=== PATIENT | male | born 1960 | race Caucasian/White ===

== ENCOUNTER 2023-09-06 20:49 | Observation (INO) | payer MEDICARE, SELFPAY ==
--- NOTE | ~2023-09-06 | CT_ITS ---
EXAMINATION: CT chest abdomen pelvis wo con DATE: 09/06/2023 22:32 INDICATION: diffuse swelling BLE/BUE, lactic acidosis . TECHNIQUE: Computed tomography (CT) of the chest, abdomen, and pelvis was performed with 100 mL Omnip aque-350 intravenous contrast. Automated exposure control and iterative reconstruction technique were employed. The dose-length product was 1631.99 mGy-cm. COMPARISON: 10/21/2014; 03/19/2013 FINDINGS: CHEST: Thoracic aorta: Mild ascending aortic ectasia, measuring 4.2 cm, stable. No dissection. Moderate arch calcification. Lung parenchyma and airways: Minimal lingular and right middle lobe scar. Patent airways. Calcified r ight lower lobe granuloma. Thoracic inlet, axillae and chest wall: Mild symmetric bilateral gynecomastia. No thyroid mass. No ax illary lymphadenopathy. Mediastinum: No mass or lymphadenopathy. Calcified right hilar lymph nodes. Heart and pericardium: Normal heart size. No pericardial effusion. Coronary artery calcifications: Mild. Pleura: No effusion or mass. Thoracic bones: No acute osseous finding in the chest. ABDOMEN/PELVIS: Liver: Normal. Biliary/Gallbladder: Gallbladder is distended. No stones or inflammatory change. No bile duct dilatio n. Pancreas: No mass or duct dilation. Spleen: Normal. Adrenals:No mass. Kidneys: No suspicious mass, obstructing stone, or hydronephrosis. Moderate bilateral perinephric str anding. Hyperdense renal pyramids bilaterally which may represent medullary nephrocalcinosis. GI tract: No small or large bowel dilation. Normal appendix. Mesentery/Peritoneum: No ascites, mass, or free air. Retroperitoneum: No mass Atherosclerotic abdominal aortic and/or arterial calcifications. Pelvis: Pelvic organs are within normal limits Soft Tissues: Small supraumbilical fat-containing hernia with mild superficial subcutaneous fat stran ding. Abdominopelvic bones: No acute osseous finding in the abdomen/pelvis. Uncomplicated lumbar fusion mejia rdware. Chronic appearing mild wedge deformity at L1. IMPRESSION: Gallbladder hydrops. May be secondary to fasting or obstruction. Correlate with biliary labs. Mild inflammation of the anterior saphenous fat at the umbilicus, likely related to the adjacent fat- containing ventral hernia. Otherwise no acute process detected in the chest, abdomen, or pelvis. Reviewed, dictated and finalized at location K. IMPRESSION: Gallbladder hydrops. May be secondary to fasting or obstruction. Correlate with biliary labs. Mild inflammation of the anterior saphenous fat at the umbilicus, likely relate d to the adjacent fat-containing ventral hernia. Otherwise no acute process detected in the chest, abdomen, or pelvis.
--- NOTE | ~2023-09-06 | US_ITS ---
EXAMINATION: US venous doppler [facility] DATE: 09/06/2023 22:26 INDICATION: swelling, R> L, pain RLE . TECHNIQUE: Grayscale images without and with compression and Doppler images of the bilateral lower ex tremity veins were obtained. COMPARISON: None FINDINGS: The right common femoral vein, profunda (deep) femoral vein, femoral vein, popliteal vein, peroneal v ein, posterior tibial veins, and greater saphenous vein are patent. The left common femoral vein, profunda (deep) femoral vein, femoral vein, popliteal vein, peroneal v ein, posterior tibial veins, and greater saphenous vein are patent. IMPRESSION: Patent bilateral lower extremity veins. No evidence of deep venous thrombosis. Reviewed, dictated and finalized at location K.
[2023-09-06 21:02] VITALS: BP 89/58; PULSE 59; RESP 16; TEMP 35.9; O2SAT 97
--- NOTE | 2023-09-06 21:15 | ECG_ITS ---
Test Date: 2023-09-06 21:47:37 Measurements Intervals [place] Rate: 55 P: 4 CO: 157 QRS: 13 QRSD: 174 T: 200 QT: 558 QTc: 538 Interpretive Statements SINUS BRADYCARDIA LEFT BUNDLE BRANCH BLOCK BASELINE ARTIFACT- I, III, AVL, AVF, V1 ABNORMAL ECG No previous ECG available for comparison Electronically Signed On 09-07-2023 06:27:04 CDT by Benjamin Porter D.O.
[2023-09-06 21:25] LABS: Basophils Percent Auto 0.5 % (0.2-1.2); Eosinophils Absolute Auto 0.2 K/mm3 (0-0.3); Eosinophils Percent Auto 1.8 % (0-4.4); Hemoglobin 12.9 g/dL (14.0-18.0); Immature Granulocyte Absolute 0.03 K/mm3 (0.00-0.031); Immature Granulocyte Percent A 0.3 % (0-0.5); Lymphocytes Absolute Auto 2.74 K/mm3 (0.9-3.2); Lymphocytes Percent Auto 31.6 % (18.3-44.2); Mean Corpuscular HGB Conc 33.9 g/dl (32-36); Mean Corpuscular Hemoglobin 39.9 pg (26-34); Mean Corpuscular Volume 117.6 fl (80-100); Mean Platelet Volume 9.5 fl (7.4-10.4); Monocytes Absolute Auto 0.8 K/mm3 (0.1-0.6); Monocytes Percent Auto 9.4 % (2.6-8.5); Neutrophils Absolute Auto 4.9 K/mm3 (1.3-6.7); Neutrophils Percent Auto 56.4 % (45.5-73.1); Nucleated Red Blood Cells Perc 0.5 % (0.0-0.2); Platelet Count Result 129 k/mm3 (150-375); Red Blood Count 3.23 M/mm3 (4.6-6.20); Red Cell Distribution Width 15.1 % (11.5-14.5); White Blood Count 8.7 K/mm3 (4.5-10.0)
[2023-09-06 21:33] LABS: Hypochromasia 1+; Ovalocytes 1+; Platelet Estimate Adequate (Adequate); Schistocytes None Seen
[2023-09-06 21:34] LABS: Prothrombin Time 13.9 Seconds (11.1-14.7)
[2023-09-06 21:35] LABS: Partial Thromboplastin Time 26.5 Seconds (22.3-36.8)
[2023-09-06 21:37] LABS: Alanine Aminotransferase 26 U/L (6-50); Albumin Level 3.1 g/dL (3.5-5.1); Alkaline Phosphatase 96 U/L (38-126); Anion Gap 14 mmol/L (4-12); Aspartate Amino Transferase 64 U/L (17-59); Bilirubin,Total 1.1 mg/dL (0.2-1.3); Blood Urea Nitrogen 5 mg/dL (9-20); Calcium 8.4 mg/dL (8.4-10.2); Carbon Dioxide 23 mmol/L (22-30); Chloride 97 mmol/L (98-107); Estimated CRCL calculation 128 ml/min; Estimated Glomerular Filt Rate > 60; Glucose 107 mg/dL (65-110); Lactic Acid Reflex 6.8 mmol/L (0.7-2.0); Potassium 3.5 mmol/L (3.4-5.0); Sodium 134 mmol/L (137-145)
[2023-09-06 21:49] LABS: NT Pro B Type Natriuretic Pept 1310 pg/mL (19.9-100); Troponin I 0.013 ng/mL (0.000-0.034)
--- NOTE | 2023-09-06 21:51 | ED.LOWEXIN ---
HPI - Extremity Injury (Lower) General Chief Complaint: Extremity Injury, Lower Stated Complaint: right leg Time Seen by Provider: 09/06/23 21:30 Source: patient Mode of arrival: ambulatory Limitations: no limitations History of Present Illness HPI Narrative: Patient is a 63-year-old male who presents the ED with report swelling to his lower extremities. Patient reports he has had intermittent swelling in his lower extremities over the past 1 week. States it is worse throughout his right lower extremity and he has had increased pain over the last several days in his RLE, from his knee down. He is prescribed Moseley at home and has been using this with some relief. He also reports having swelling in his upper extremities. Denies significant pain in his upper extremities. Patient reports history of cardiomyopathy. He is on hydrochlorothiazide. He is not on any other diuretics. He reports having dyspnea on exertion, states this is not abnormal for him. He does report having intermittent chest pain over the last several days, last occurring this morning. Denies current pain. Patient is a daily drinker. Drinks 1-2 beers and several shots of whiskey (Fireball) per day. Reports hx of Hep C in the past related to tattoos, has been treated for this. Denies hx of IVDA. Denies known hx of cirrhosis. Denies abd pain, N/V, fevers. Related Data Home Medications Medication Instructions Recorded Confirmed albuterol sulfate 90 mcg/actuation inhalation 09/07/23 aerosol inhaler fluticasone propionate 50 intranasal 09/07/23 mcg/actuation nasal spray,suspension gabapentin 300 mg capsule mg 09/07/23 hydrochlorothiazide 12.5 mg tablet mg 09/07/23 hydrocodone 10 mg-acetaminophen tablet 09/07/23 325 mg tablet lisinopril 10 mg tablet mg 09/07/23 metoprolol tartrate 50 mg tablet mg 09/07/23 prednisone 50 mg tablet mg 09/07/23 Allergies Allergy/AdvReac Type Severity Reaction Status Date / Time iohexol Allergy Itching Verified 09/06/23 21:17 [From contrast - CT, X-RAY] Review of Systems Review of Systems: CONSTITUTIONAL: Denies fever, chills, or sweats. ENT: Denies rhinorrhea, congestion, sore throat. CARDIOVASCULAR: See HPI. RESPIRATORY: See HPI. GASTROINTESTINAL: Denies abdominal pain, nausea, vomiting. MUSCULOSKELETAL: See HPI. All systems reviewed & are unremarkable except as noted in HPI and below Exam Narrative: GENERAL: Appears older than stated age, mildly disheveled, obese with BMI of 34.5, non-toxic, in no acute distress. HEAD: Normocephalic, atraumatic. RESPIRATORY: Airway patent, respirations nonlabored. Decreased lung sounds bilaterally, no significant focal lung sounds. CARDIOVASCULAR: Bradycardic with regular rhythm without murmurs, rubs, or gallops. Peripheral pulses are palpable. ABDOMINAL: Abdomen is mildly distended, but soft, no focal tenderness. Umbilical hernia present. Normoactive BS. MUSCULOSKELETAL: Moves all extremities. Diffuse pitting edema in lower extremities past knees, R increasingly swollen compared to L. Sensation intact. Good temperature and color of both extremities. Diffuse pitting edema of upper extremities, appears symmetric. SKIN: Warm, dry, normal color. Scattered scabs and bruising to upper extremities, nontender. No surrounding signs of infection. NEURO: A&O X3. Speech clear. Cranial nerves II-XII grossly intact. Steady gait. No ataxic movements. PSYCHIATRIC: Appropriate mood and affect. Normal interaction. Course Vital Signs Vital signs: Vital Signs Temperature 96.7 F L 09/06/23 21:02 Pulse Rate 59 L 09/06/23 21:02 Respiratory Rate 16 09/06/23 21:02 Blood Pressure 89/58 L 09/06/23 21:02 Pulse Oximetry 97 09/06/23 21:02 Oxygen Delivery Room Air 09/06/23 21:02 Temperature 96.7 F L 09/06/23 21:02 Pulse Rate 62 09/06/23 23:04 Respiratory Rate 15 09/06/23 23:04 Blood Pressure 98/54 L 09/06/23 23:04 Pulse Oximetry 97
[2023-09-06 22:19] LABS: Lactic Acid Reflex 5.4 mmol/L (0.7-2.0)
[2023-09-06] MEDS: ALBUMIN HUMAN 25% 25 GM/100 ML 100 ML IVPB (23:00)
[2023-09-06] MEDS: ACETAMINOPHEN 500 MG TABLET 1000 MG PO (23:03)
[2023-09-06 23:04] VITALS: BP 98/54; PULSE 62; RESP 15; O2SAT 97
[2023-09-06 23:51] LABS: Ethanol 236 mg/dL (<10)
[2023-09-06 23:54] LABS: Lipase 87 U/L (23-300)
[2023-09-07 00:23] LABS: Reflex Lactic Acid Yes or No Add Lactic
[2023-09-07] MEDS: oxyCODONE HCL (*CRX) 2.5 MG TAB IR 5 MG PO (00:31)
[2023-09-07 00:44] LABS: Troponin I < 0.012 ng/mL (0.000-0.034)
[2023-09-07 00:51] LABS: Appearance Urine Clear (Clear); Bilirubin Urine Negative (Negative); Blood Urine Negative (Negative); Color Urine Yellow (Yellow); Glucose Urine UA Negative (Negative); Ketones Urine Negative (Negative); Leukocyte Esterase Ur Negative LEU/UL (Negative); Nitrate Urine Negative (Negative); Protein Urine Negative (Negative); Specific Grav Ur 1.009 (1.001-1.035)
[2023-09-07 00:57] LABS: Add Urine Microscopic? NO
[2023-09-07 01:06] LABS: Lactic Acid 3.2 mmol/L (0.7-2.0)
[2023-09-07 02:30] VITALS: BP 100/52; BP 104/56; PULSE 61; PULSE 62; RESP 15; RESP 16; O2SAT 100; O2SAT 98
[2023-09-07 02:45] VITALS: BMI 34.8
--- NOTE | 2023-09-07 03:11 | ADMGEN ---
This patient, Prem Raza Jr., was admitted to IMU Room 213-01 at 0235. Patient/family oriented to hospital policies and general routines including ID bracelet, bed and alarms, visiting hours, pain management, procedures, bathroom and other care routines, personal items, smoking policy, room service/diet, and visiting hours. Information on how to activate the Rapid Response Team has been discussed. Patient/Family are encouraged to report perceived risks to care and to ask questions if they do not understand what they are told or what they should do.
[2023-09-07 03:39] LABS: Troponin I < 0.012 ng/mL (0.000-0.034)
[2023-09-07 04:00] VITALS: BP 100/52; PULSE 67; O2SAT 100
--- NOTE | 2023-09-07 04:23 | ECG_ITS ---
Test Date: 2023-09-07 04:42:32 Measurements Intervals [place] Rate: 62 P: 39 GA: 204 QRS: 7 QRSD: 170 T: 181 QT: 521 QTc: 533 Interpretive Statements SINUS RHYTHM BORDERLINE AV CONDUCTION DELAY LEFT BUNDLE BRANCH BLOCK BASELINE ARTIFACT- I, II, III, AVR, V1-V2 ABNORMAL ECG Compared to ECG 09/06/2023 21:47:37 Sinus bradycardia no longer present Electronically Signed On 09-07-2023 06:41:14 CDT by Benjamin Porter D.O.
[2023-09-07] MEDS: NICOTINE (*PBKC) 14 MG PATCH 1 PATCH TRANSDERM (04:28)
[2023-09-07] MEDS: chlordiazePOXIDE (*CRX) 25 MG CAPSULE PO (04:28)
[2023-09-07 05:00] VITALS: BP 133/52; PULSE 64; RESP 22; TEMP 36.4; O2SAT 96
[2023-09-07 06:00] VITALS: PULSE 69
--- NOTE | 2023-09-07 08:01 | PC.NURSE ---
Patient requested to change diet from Heart Healthy to regular diet. Nurse and MD educated patient on benefits and risk of not following diet. Patient stated he wanted to leave if diet not changed. MD stated that it was fine. Nurse educated patient about leaving AMA. Patient verbalized understanding and signed proper documents.
--- NOTE | 2023-09-07 10:14 | PM.SD2 ---
Same Day Admit/Disch: HPI History of Present Illness Chief complaint: BLE/BUE swelling, Lactic acidosis, Alcoholism Narrative: Prem Raza Jr. is a 63 year old male with past medical history cardiomyopathy (reported by the patient), alcohol use disorder, history of hepatitis-C (related stat to) treated. He presents to [facility] with complaint of increasing generalized swelling over the past week. In [facility] he was found to have elevated lactic acid at 5.4. Albumin 3.1. Physical exam revealed anasarca. Lower extremity edema right greater than left. Venous ultrasound was completed which did not demonstrate DVT. The patient was admitted to room 213. Status post albumin infusion is lactic acid removed. The patient was placed on a heart healthy diet for suspected volume overload due to heart failure. His BNP was 1310. He became increasingly verbally aggressive/cantankerous in the morning and refused to eat a heart healthy diet. He wanted to eat salt and he reports he has been putting salt in his hand and eating it at home. Educated the patient on the importance of salt restriction and the difficulty in treating his volume overload if he does not adhere to this. Subsequently, the patient decided he wanted to leave against medical advice. Educated on the risk of leaving at this moment including deterioration and even . This was witnessed by the patient's night nurse. Patient was in full understanding. [facility] Social History Social History Smoking packs per day: 0.5 Smoking cigarettes per day: 10.0 Smoking status: Current every day smoker Tobacco type: cigarettes Alcohol intake: current Drinks per week: 14 Substance use: never Substance use type: does not use Do You Feel Safe in your Home?: Yes Lack of Transportation: No Lack of Food: Never True Current Housing: I Have Housing Concerned About Future Housing: No Difficulty Paying Gas/Electric Bills: No Difficulty Paying for Meds: No Currently Unemployed: No Education: Decline to Answer Difficulty w/ Childcare or Family Care: No Spiritual care concerns: No Same Day Admit/Disch: Med Pre-admit Medications Home Medications Medication Instructions Recorded Confirmed Type albuterol sulfate 90 mcg/actuation 90 mcg inhalation QID 09/07/23 09/07/23 History aerosol inhaler fluticasone propionate 50 50 mcg intranasal PRN 09/07/23 09/07/23 History mcg/actuation nasal spray,suspension gabapentin 300 mg capsule 300 mg PO BID 09/07/23 09/07/23 History hydrochlorothiazide 12.5 mg tablet 12.5 mg PO ONCE 09/07/23 09/07/23 History hydrocodone 10 mg-acetaminophen 10 - 325 tablet PO PRN PAIN 09/07/23 09/07/23 History 325 mg tablet lisinopril 10 mg tablet 10 mg PO ONCE 09/07/23 09/07/23 History melatonin 10 mg tablet 10 mg PO HS PRN Insomnia 09/07/23 09/07/23 History metoprolol tartrate 50 mg tablet 50 mg PO BID 09/07/23 09/07/23 History Review of Systems Review of Systems All systems reviewed & are unremarkable except as noted in HPI and below (Subjective) Exam Narrative: Exam deferred due to patient's offensive behavior DS: Data Data Completed and Pending Labs on day of discharge: Labs from last 24 hours 09/07/23 09/07/23 09/07/23 03:12 00:51 00:44 WBC RBC Hgb Hct MCV MCH MCHC RDW Plt Count MPV Immature Gran % (Auto) Neut % (Auto) Lymph % (Auto) [place] % (Auto) Eos % (Auto) Baso % (Auto) Lymph # (Auto) [place] # (Auto) Eos # (Auto) Baso # (Auto) Abs Immat Gran (auto) Absolute Neuts (auto) Absolute Nucleated RBC Nucleated RBC % Platelet Estimate Hypochromasia Ovalocytes Schistocytes PT INR APTT Sodium Potassium Chloride Carbon Dioxide Anion Gap BUN Creatinine Estim Creat Clear Calc Estimated GFR Glucose
== END 2023-09-07 08:04 | disposition left against medical advice (07) ==
LOC: ANHED 09-07 01:50 → ANHIMU 09-07 03:37
PROVIDERS: Emergency Medicine; Admitting Provider Internal Medicine; Emergency Provider Physician Assistant; PCP Internal Medicine; Visit Provider General Practice
DX: M79.89 Other specified soft tissue disorders (principal); E87.20 Acidosis, unspecified; F10.220 Alcohol dependence with intoxication, uncomplicated; Y90.7 Blood alcohol level of 200-239 mg/100 ml; Z86.19 Personal history of other infectious and parasitic diseases; Z79.51 Long term (current) use of inhaled steroids; F17.210 Nicotine dependence, cigarettes, uncomplicated; Z53.29 Procedure and treatment not carried out because of patient's decision for other reasons; Z79.891 Long term (current) use of opiate analgesic
CPT/HCPCS: 36415; 71250; 74176; 80053; 80307; 81003; 83605; 83690; 83880; 84484; 85025; 85610; 85730; 87040; 93005; 93970; 96365; 96366; 99285; A9270; G0378; P9047

== ENCOUNTER 2024-06-12 01:03 | Emergency (ER) | payer OTHER, SELFPAY ==
[2024-06-12] VITALS (16 sets, daily range): BP systolic 82–118; BP diastolic 49–79; PULSE 62–71; RESP 12–22; TEMP 36.4; O2SAT 94–100
--- NOTE | ~2024-06-12 | XR_ITS ---
Right Forearm AP and lateral views of the right forearm were performed. Clinical History: Injury Findings: No fracture or dislocation is seen. Osseous alignment in anatomic. Joint spaces are prese rved. Soft tissues are unremarkable. Impression: Unremarkable exam. Reviewed, dictated and finalized at location M. Impression: Unremarkable exam.
--- NOTE | ~2024-06-12 | CT_ITS ---
Non-contrast Head CT History: Status post fall Technique: Axial non-contrast imaging of the brain was performed. Dose reduction technique was used on this scan by utilizing automated exposure control and iterative reconstruction technique. The dose -length product (DLP) was 681.00 mGy-cm. Findings: There is no evidence of intracranial hemorrhage, mass lesion, or acute infarct. Brain par enchyma appears normal. The ventricles and subarachnoid spaces are normal in size. The calvarium ap pears normal. The visualized paranasal sinuses and mastoid air cells are clear. Impression: No significant abnormality seen. Reviewed, dictated and finalized at location . Impression: No significant abnormality seen.
--- NOTE | ~2024-06-12 | CT_ITS ---
Clinical Indication: Trauma CT Scan of the Chest, Abdomen, and Pelvis with Contrast: Technique: Contiguous sections were acquired throughout the chest, abdomen, and pelvis after intraven ous administration of 100 cc of Omnipaque 350. Dose reduction technique was used on this scan by jean-pierre ceja automated exposure control and iterative reconstruction technique. The dose-length product (DL P) was 1650.60 mGy-cm. Comparison: 09/06/2023 Findings: There is no evidence of any significant mediastinal, hilar or axillary lymphadenopathy. Calcified rig ht hilar lymph nodes are present. No aortic aneurysm. There are atherosclerotic calcifications of the coronary arteries. There is no evidence of pleural or pericardial effusion. The lungs are clear, aside from minimal right basilar atelectatic change. Oblique, displaced fracture of the right humeral shaft noted. Possible cirrhotic morphology of liver. The spleen, pancreas, gallbladder, adrenals and kidneys are w ithin normal limits. There are atherosclerotic calcifications of the aorta. No lymphadenopathy. No bowel obstruction or bowel wall thickening. There is no evidence to suggest acute appendicitis. Urinary bladder is unremarkable. No pelvic mass seen. No ascites. There is mild L1 compression deform ity, chronic. Impression: Acute, oblique, displaced fracture of the right humeral shaft noted. No other acute, posttraumatic abnormality seen. Possible cirrhotic morphology of the liver. Chronic L1 compression deformity. Reviewed, dictated and finalized at [facility]. Impression: Acute, oblique, displaced fracture of the right humeral shaft noted. No other acute, posttraumatic abnormality seen. Possible cirrhotic morphology of the liver. Chronic L1 compression deformity.
--- NOTE | ~2024-06-12 | XR_ITS ---
Right Humerus Technique: AP and lateral views were obtained. Clinical History: Status post splint placement Findings: Again identified is acute, oblique fracture of the mid humeral shaft. There is apparent inc reased posterolateral apex angulation as compared to prior exam, with persistent probable displacemen t. Joint spaces are intact. Soft tissues are unremarkable. Impression: Acute oblique fracture mid humeral shaft with apparent increased posterolateral apex angulation as co mpared to prior exam with persistent probable displacement. Reviewed, dictated and finalized at [facility]. Impression: Acute oblique fracture mid humeral shaft with apparent increased posterolateral apex angulation as compared to prior exam with persistent probable displacemen t.
--- NOTE | ~2024-06-12 | CT_ITS ---
Noncontrast CT scan of the cervical spine Technique: Multiple contiguous axial [address] images of the cervical spine were obtained and rec onstructed in 2D sagittal and coronal planes on the acquisition scanner. Dose reduction technique was used on this scan by utilizing automated exposure control, adjustment of the mA and/or kV according to patient size. The dose-length product (DLP) was 530.96 mGy-cm. Clinical History: Pain Findings: No acute fracture or acute subluxation. There is probable partial fusion across the C5-C6 a nd C6-C7 disc spaces. There is a probable chronic fracture deformity through the anterior right aspec t of the C1 vertebral body with partial fusion across the fracture site. There is bilateral neural fo raminal narrowing at C3-C4 with extensive facet arthropathy bilaterally, right worse than left. There is extensive facet arthropathy bilaterally at C4-C5, left worse than right, with severe left neural foraminal narrowing. There is moderate canal stenosis at C6-C7 with mild bilateral neural foraminal n arrowing. Paravertebral soft tissues are unremarkable. No prevertebral soft tissue swelling. Impression: No acute fracture or subluxation of the cervical spine. 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 Degenerative changes, as detailed above. Reviewed, dictated and finalized at location . Impression: No acute fracture or subluxation of the cervical spine. Chronic, partially fused fracture deformity through the right lateral mass of C 1. Degenerative changes, as detailed above.
--- NOTE | ~2024-06-12 | XR_ITS ---
Right Humerus Technique: AP and lateral views were obtained. Clinical History: Injury Findings: There is an acute, oblique/spiral fracture of the humeral shaft, with anteromedial displace ment by one shaft width of the distal fracture fragment.. Visualized joint spaces are grossly preserv ed. Soft tissues are unremarkable. Impression: Acute, displaced oblique/spiral fracture of the humeral shaft. Reviewed, dictated and finalized at location . Impression: Acute, displaced oblique/spiral fracture of the humeral shaft.
--- OUTSIDE RECORDS SUMMARY | 2024-06-12 01:15 | XMS_ITS | Clinical Summary ---
Author Organization [email or web address] Address [address] [place] [address] Care Team Providers Care Healthcare Science Specialist Name Role Phone Scooter Montgomery MD Primary Care Provider [phone] Source Comments [email or web address],non-owned Affiliates and Associated Physician Practices is amultiple site organization consisting of ambulatory clinics and hospital sitesin [place], [place], [place] and [place]. This disclosure is being madepursuant to the Care Everywhere program and may not contain all information available regarding this patient. Last updated 17.[email or web address] Allergies Active Allergy Reactions Criticality Noted Date Comments Contrast-Gadolinium Agents For Mri 0 06/10/2016 Gadoversetamide Itching Low 06/10/2016 Medications * Be aware that medications may not be up to date on this document. Alwaysverify current medications with the patient. albuterol HFA (Proventil; Ventolin; Proair) 108 (90 Base) MCG/ACT inhaler Inhale 2 (two) puffs by mouth every 4 hours as needed 3 Active fluticasone propionate (Flonase) 50 MCG/ACT nasal spray [place] 2 (two) sprays into the nose once daily 2 Active gabapentin (Neurontin) 300 MG capsule Take 1 (one) capsule by mouth 3 times daily 2 Active metoprolol tartrate IR (Lopressor) 50 MG tablet Take 1 (one) tablet by mouth 2 times daily 3 Active HYDROcodone-ac etaminophen ([place]) 10-325 MG tablet Take 1 (one) tablet by mouth every 6 hours as needed 3 Active acetaminophen (Tylenol) 500 MG tablet Take 1 (one) tablet by mouth every 6 hours as needed Maximum allowable Acetaminophen amount = 4 Grams (4000 mg) / 24 hours. 3 Active multivitamin daily tablet Take 1 (one) tablet by mouth once daily 3 Active thiamine (Vitamin B-1) 100 MG tablet Take 1 (one) tablet by mouth once daily for 90 days 30 tablet 2 3 Active folic acid (Folvite) 1 MG tablet Take 1 (one) tablet by mouth once daily for 90 days 30 tablet 2 3 Active lisinopril (Prinivil; Zestril) 20 MG tablet 3 Active hydroCHLOROthi azide (Hydrodiuril) 12.5 MG 3 Active Active Problems Problem Noted Date Diagnosed Date Hospital discharge follow-up 09/08/2022 Syncope and collapse 08/24/2022 HTN (hypertension) 08/24/2022 Dilated cardiomyopathy 08/24/2022 Chronic back pain 08/24/2022 Fall 08/24/2022 C1 cervical fracture 08/24/2022 Compression fracture of L1 l umbar vertebra, closed, initial encounter 08/24/2022 Hyponatremia 08/24/2022 Hypokalemia 08/24/2022 Immunizations Immunization Administration Dates Next Due OpenBook primary monoval ent 12+ yr 0.3mL Purple cap 09/22/2020,08/31/2020 FLU VACCINE TRI IIV3 SPLIT IM (FLUVIRIN) 021 HEP A/HEP B 01/21/2016 HEP B VACCINE, ADULT 3 DOSE 06/10/2016 INFLUENZA VACCINE, CELL CULT URE, QUADR. (FLUCELVAX QUADRIVALENT; 6MO+) (CCIIV4) 11/22/2019 INFLUENZA VACCINE, QUADR. (F LUZONE; FLULAVAL; FLUARIX; AFLURIA QUADRIVALENT; 6MO+), 0.5 ML (IIV4) 12/06/2021 PNEUMOCOCCAL PPV VACCINE 12/03/2014,11/17/2010 Zoster Hzv Vacc Recombinant Inj Im 04/12/2021 Social History Tobacco Use Types Packs/Day Years Used Date Smoking Tobacco: Every Day Cigarettes Smokeless Tobacco: Never Tobacco Cessation:Ready to Q uit: Not Asked; Counseling Given: Not Answered AUDIT-C Answer Date Recorded Q1: How often do you have a drink containing alcohol? 4 or more times a week 08/23/2022 Q2: How many drinks containi ng alcohol do you have on a typical day when you are drinking? 3 or 4 Q3: How often do you have si x or more drinks on one occasion? Never 08/23/2022 Sex and Gender Information Value Date Recorded Sex Assigned at Not on file Legal Sex Male 5:24 AM [employer] Gender Identity Not on file Sexual Orientation Not on file Last Filed Vital Signs Vital Sign Reading Time Taken Comments Blood Pressure 153/76 08/27/2022 12:03 PM CDT Pulse 58 08/27/2022 12:03 PM CDT Temperature 37.1 C (98.7 F) 08/27/2022 12:03 PM CDT Respiratory Rate 19 08/27/2022 12:03 PM CDT Oxygen Saturation 97% 08/27/2022 12:03 PM CDT Inhaled Oxygen Concentration - - Weight 111.1 kg (245 lb) 10/25/2022 9:13 AM CDT Height 175.3 cm (5' 9 ) 10/25/2022 9:13 AM CDT Body Mass Index 36.18 10/25/2022 9:13 AM CDT Plan of Treatment Health Maintenance Due Date Last Done Comments COLOGUARD (AGES 45-75) - COLON CA SCREENING 1960 COLON MONITORING 1960 COLONOSCOPY - COLON CA SCREENING 1960 CT COLONOGRAPHY - COLON CA SCREENING 1960 Colorectal Cancer Screening 1960 FIT - COLON CA SCREENING 1960 FLEX SIG - COLON CA SCREENING 1960 LIPID TESTING 1960 HIV SCREENING 06/20/1975 HEPATITIS C SCREENING 06/15/1978 DTAP/TDAP/TD VACCINES (1 - Tdap) 06/20/1979 PNEUMOCOCCAL VACCINE 50+ (2 of 2 - PCV) 12/04/2015 12/03/2014, 11/17/2010 HEPATITIS B VACCINE (3 of 3 - Hep B Twinrix risk 3-dose series) 11/10/2016 06/10/2016, 01/21/2016 Respiratory Syncytial Virus (RSV) Vaccine Pt: or over 60 yrs (1 - Risk 60-74 years 1-dose series) 2020 ZOSTER VACCINE (2 of 2) 06/07/2021 04/12/2021 COVID-19 VACCINE (3 season) 2023 09/22/2020, 08/31/2020 DEPRESSION SCREENING 02/15/2024 MEDICARE AWV CALENDAR YEAR 2024 INFLUENZA VACCINE (Season Ended) 2024 12/06/2021, 12/03/2020, 11/22/2019 SCREENING FOR DIABETES 08/27/2025 , 08/26/2022, 08/25/2022, Additional history exists HIB VACCINE Aged Out No longer eligi ble based on patient's age to complete this topic HPV VACCINE Aged Out No longer eligi ble based on patient's age to complete this topic MENINGOCOCCAL (Group B) VACCINE SHARED DECISION-MAKING Aged Out No longer eligible based on patient's age to complete this topic MENINGOCOCCAL GROUPS A/C/Y/W VACCINE Aged Out No longer eligible based on patient's age to complete this topic Procedures Procedure Name Priority Date/Time Associated Diagnosis Comments COMPREHENSIVE METABOLIC PANEL AM Draw 08/27/2022 2:13 AM CDT Syncope and collapse from Last 3 Months or Most Recently Relevant to Health Maintenance Results * (ABNORMAL) COMPREHENSIVE METABOLIC PANEL (08/27/2022 2:13 AM CDT) BUN 10 7 - 26 mg/dL 08/27/2022 2:49 AM [facility] Creatinine 0.56(L) 0.71 - 1.16 mg/dL 08/27/2022 2:49 AM [facility] Sodium 137 136 - 145 mmol/L 08/27/2022 2:49 AM [facility] Potassium 4.0 3.5 - 4.5 mmol/L 08/27/2022 2:49 AM [facility] Chloride 102 98 - 107 mmol/L 08/27/2022 2:49 AM [facility] CO2 26 22 - 29 mmol/L 08/27/2022 2:49 AM [facility] Glucose 98 70 - 115 mg/dL 08/27/2022 2:49 AM [facility] Calcium 8.9 8.4 - 10.2 mg/dL 08/27/2022 2:49 AM [facility] Protein Total 5.7(L) 6.0 - 8.3 g/dL 08/27/2022 2:49 AM [facility] Albumin 2.8(L) 3.4 - 5.0 g/dL 08/27/2022 2:49 AM [facility] Bilirubin Total 0.6 0.2 - 1.2 mg/dL 08/27/2022 2:49 AM [facility] Alkaline Phosphatase 94 40 - 150 U/L 08/27/2022 2:49 AM [facility] ALT 18 5 - 55 U/L 08/27/2022 2:49 AM [facility] AST 22 5 - 34 U/L 08/27/2022 2:49 AM [facility] Anion Gap 13 8 - 18 08/27/2022 2:49 AM [facility] BUN/Creatinine Ratio 18 7 - 23 08/27/2022 2:49 AM [facility] Osmolality Calculated 283 270 - 300 mOsm/kg 08/27/2022 2:49 AM [facility] Albumin/Globulin Ratio 1.0(L) 1.1 - 2.3 08/27/2022 2:49 AM [facility] eGFR by CKD-EPI >90 >=90 mL/min/1.7 3 m2 08/27/2022 2:49 AM [facility] Blood BLOOD SPECIMEN / Unknown Lab Venipuncture / Unknown 08/27/2022 2:13 AM [facility] 08/27/2022 2:35 AM [facility] us Teressa Howe MD LAB - CHEMISTRY ORDERABLES Final Result [facility] [address] [place] [address], [facility] [phone] from Last 3 Months or Most Recently Relevant to Health Maintenance Insurance [employer] [facility] Care Address: [facility] [address] [place] [address] [facility] MEDICARE ADV HMO & PPO Advance Directives * Full Code (Latest Code Status on File) Date Activated Date Inactivated Comments 08/24/2022 2:57 AM 08/27/2022 7:56 PM Care Teams Healthcare Science Specialist Relationship Specialty Start Date End Date Scooter Montgomery MD PCP - General Internal Medicine 06/10/16
--- OUTSIDE RECORDS SUMMARY | 2024-06-12 01:15 | XMS_ITS | Referral Summary ---
Author Organization [facility] Address [address] [place] [address] Care Team Providers Care Activity Therapy Specialist Name Role Phone Scooter Montgomery MD Primary Care Provider [phone] Scooter Montgomery MD Unavailable [phone] Scooter Montgomery MD Unavailable Encounters Date Type Department Care Team Description 05/21/2024 2:22 PM CDT - 05/21/2024 11:59 PM CDT Hospital Encounter [facility] ([facility]) [address] [place] [address] Discharge Disposition: Discharge to home or self care 05/21/2024 2:21 PM CDT - 05/21/2024 11:59 PM CDT Hospital Encounter [facility] ([facility]) [address] [place] [address] Discharge Disposition: Discharge to home or self care 04/20/2024 [facility] [address] [place] [address] [address] [place] [place] [id number] Scooter Montgomery MD symptoms from Last 3 Months Allergies Active Allergy Reactions Criticality Noted Date Comments Gadolinium-Containing Contra st Media Rash Medium 06/10/2016 Gadoversetamide Itching Low 06/10/2016 Iodine And Iodide Containing Products Hives Reaction: Hives, Medications aspirin 81 mg tablet take 1 tablet (81MG) by oral route every day 0 0 0 Active fluticasone furoate-vilant Tabitha (Breo Ellipta) 100-25 mcg/dose diskus inhaler Inhale 1 puff daily 90 each 1 2 Active Additional Information Patient not taking.Reported on 03/19/2022 multivit with min-folic acid (Adult One Daily Multivitamin) 0.4 mg tablet Take 1 tablet by mouth daily 3 Active albuterol HFA (PROVENTIL HFA,VENTOLIN HFA,PROAIR HFA) 90 mcg/actuation inhaler INHALE 2 PUFFS EVERY 4 HOURS NEEDED 3 each 10 3 Active polyethylene glycol (GoLYTELY) 236-22.74-6.74 -5.86 gram solution 07/05 at 6:00 PM drink 1/2 jug of bowel prep over 2 hours. 07/06 at 8:15 AM drink remaining 1/2 jug of bowel prep over 2 hours until finished. 4000 mL 4 Active predniSONE (DELTASONE) 50 mg tablet 50mg 13 hours prior to procedure. 1 tablet 7 hours prior to procedure, , 1 tablet 1 hour prior. Along with benadryl 3 tablet 4 Active fluticasone propionate (FLONASE) 50 mcg/actuation nasal spray USE 2 SPRAYS INTO EACH NOSTRIL DAILY 48 g 3 4 Active gabapentin (NEURONTIN) 300 mg capsule Take 1 capsule (300 mg total) by mouth 4 (four) times a day 360 capsule 4 Active lisinopriL (PRINIVIL,ZEST RIL) 5 mg tablet Take 1 tablet (5 mg total) by mouth daily 90 tablet 1 4 Active Additional Information Patient not taking.Reported on 01/25/2024 hydroCHLOROthi azide 12.5 mg tablet Take 1 tablet (12.5 mg total) by mouth daily 90 tablet 2 4 Active metoprolol tartrate (LOPRESSOR) 50 mg immediate release tablet TAKE 1 TABLET TWICE DAILY 180 tablet 3 4 Active HYDROcodone-ac etaminophen (NORCO) 10-325 mg per tabletIndicati ons:Chronic pain syndrome Take 1 tablet by mouth every 6 (six) hours as needed for pain 120 tablet 5 06/25/19 25 Active HYDROcodone-ac etaminophen (NORCO) 10-325 mg per tabletIndicati ons:Chronic pain syndrome Take 1 tablet by mouth every 6 (six) hours as needed for pain 120 tablet 5 05/26/19 25 Discontin ued(Reord er) Active Problems Problem Noted Date Diagnosed Date Neuropathy 01/25/2024 Assessment & Plan (01/25/2024 2:28 PM EGGS INSPECTOR): Check nerve conduction study Claudication 01/25/2024 Assessment & Plan (01/25/2024 2:27 PM EGGS INSPECTOR): Check arterial Doppler. Maybe pseudo claudication from back issues. Weight loss 08/15/2023 Assessment & Plan (08/15/2023 2:37 PM CDT): Check CT abdomen pelvis, CT chest, and labs Encounter for screening colonoscopy 04/12/2023 Essential hypertension 04/29/2020 Overview (04/29/2020): BP at target Assessment & Plan (01/25/2024 2:28 PM EGGS INSPECTOR): BP at target. Assessment & Plan (08/15/2023 2:37 PM CDT): BP at target. Chronic obstructive pulmonary disease 04/29/2020 Overview (04/29/2020): Stable Assessment & Plan (01/25/2024 2:28 PM EGGS INSPECTOR): Stable at this time. Assessment & Plan (08/15/2023 2:37 PM CDT): Stable continues to smoke Chronic hepatitis C without hepatic coma 021 Overview (04/29/2020): Followed by GI Assessment & Plan (01/25/2024 2:28 PM EGGS INSPECTOR): Check CMP. Assessment & Plan (08/15/2023 2:37 PM CDT): Stable. Check alpha fetoprotein Chronic systolic heart failure 02/19/2015 Overview (05/21/2016): Chronic systolic heart failure Ascending aortic aneurysm 02/19/2015 Overview (05/21/2016): Ascending aortic aneurysm Assessment & Plan (08/15/2023 2:37 PM CDT): Check CT chest. Tobacco dependence syndrome 06/15/2013 Overview (05/20/2016): TOBACCO USE DISORDER Assessment & Plan (08/15/2023 2:37 PM CDT): Encouraged to stop smoking. Dilated cardiomyopathy secondary to alcohol 03/2013 Overview (05/21/2016): ALCOHOLIC CARDIOMYOPATHY Immunizations Immunization Administration Dates Next Due Hep A / Hep B 01/21/2016 Hep B Vaccine 06/10/2016 Influenza, Quadrivalent, Bianca l Culture-based MDCK, Preservative Free, Antibiotic Free, Intramuscular 11/22/2019 Influenza, Quadrivalent, Spl it, Preservative Free, Intramuscular 12/06/2021,12/24/2018,12/19/2015,12/03,10/22/2014 Influenza, Trivalent, Cell Culture-based MDCK, Preservative Free, Antibiotic Free, Intramuscular 11/22/2019 Influenza, Trivalent, High D ose, Split, Preservative Free, Intramuscular 11/30/2013,12/15/2012 Influenza, Trivalent, IM (MDV) 12/03/2020 Pneumococcal Polysaccharide PPV23 12/03/2014,05/2010 ZOSTER Recombinant 04/12/2021 Social History Tobacco Use Types Packs/Day Years Used Date Smoking Tobacco: Former Cigarettes Tobacco Cessation:Counseling Given: Not Answered Alcohol Use Standard Drinks/Week Comments Yes 0 (1 standard drink = 0.6 oz pur e alcohol) AUDIT-C Answer Date Recorded Q1: How often do you have a drink containing alcohol? 4 or more times a week 07/07/2023 Q2: How many drinks containi ng alcohol do you have on a typical day when you are drinking? 3 or 4 Q3: How often do you have si x or more drinks on one occasion? Never 07/07/2023 Personal Safety Answer Date Recorded Have you ever been in or are you currently in a harmful physical or emotional relationship or is someone making you feel afraid or unsafe? Denies 07/07/2023 Sex and Gender Information Value Date Recorded Sex Assigned at Not on file Legal Sex Male 11:57 AM EGGS INSPECTOR Gender Identity Not on file Sexual Orientation Not on file Last Filed Vital Signs Vital Sign Reading Time Taken Comments Blood Pressure 154/90 01/25/2024 1:53 PM EGGS INSPECTOR Pulse 63 01/25/2024 1:53 PM EGGS INSPECTOR Temperature 36.1 C (97 F) 07/07/2023 4:50 PM CDT Respiratory Rate 17 07/07/2023 5:10 PM CDT Oxygen Saturation 90% 07/07/2023 5:10 PM CDT Inhaled Oxygen Concentration - - Weight 103.9 kg (229 lb) 01/25/2024 1:53 PM EGGS INSPECTOR Height 175.3 cm (5' 9 ) 01/25/2024 1:53 PM EGGS INSPECTOR Body Mass Index 33.82 01/25/2024 1:53 PM EGGS INSPECTOR Plan of Treatment Scheduled Procedures Name Priority Associated Diagnoses Date/Ti me COLONOSCOPY History of colon polyps Procedures Procedure Name Priority Date/Time Associated Diagnosis Comments XR TRANSFER OF OUTSIDE FILMS Routine 05/21/2024 2:22 PM CDT NEURO MR OUTSIDE REFERENCE Routine 05/21/2024 2:21 PM CDT COLONOSCOPY 07/07/2023 3:45 PM CDT HEPATITIS C RNA, QUANTITATIVE, PCR Routine 04/12/2023 4:00 PM EGGS INSPECTOR Encounter for screening colonoscopy Tobacco dependence syndrome Essential hypertension Chronic obstructive pulmonary disease, unspecified COPD type (HCC) Chronic hepatitis C without hepatic coma (HCC) Aneurysm of ascending aorta without rupture Chronic midline low back pain without sciatica PSA SCREEN Routine 04/12/2023 4:00 PM EGGS INSPECTOR Encounter for screening colonoscopy Tobacco dependence syndrome Essential hypertension Chronic obstructive pulmonary disease, unspecified COPD type (HCC) Chronic hepatitis C without hepatic coma (HCC) Aneurysm of ascending aorta without rupture Chronic midline low back pain without sciatica from Last 3 Months or Most Recently Relevant to Health Maintenance Results * XR Outside Reference (05/21/2024 2:22 PM CDT) Impressions MADELINE_OSWALDO - 05/21/2024 2:22 PM CDT These images are for Reference purposes only and have not been reviewed by [facility]. There will be no report generated by a [facility] Radiologist. Narrative RAD_PACS_OSWALDO - 05/21/2024 2:22 PM CDT EXAMINATION: Images For Reference Purposes Only Scooter Montgomery MD IMG XR PROCEDURES Final Resul t Performing Organization Address [facility] de Phone Number [email or web address] * Neuro MR Outside Reference (05/21/2024 2:21 PM CDT) Impressions RADGARFIELD_OSWALDO - 05/21/2024 2:22 PM CDT These images are for Reference purposes only and have not been reviewed by [facility]. There will be no report generated by a [facility] Radiologist. Narrative RAD_PACIsabelle_OSWALDO - 05/21/2024 2:22 PM CDT EXAMINATION: Images For Reference Purposes Only Scooter Montgomery MD IM MRI PROCEDURES Final Resu lt Performing Organization Address [facility] de Phone Number [email or web address] * Colonoscopy (07/07/2023 3:45 PM CDT) Anatomical Region Laterality Modality Other Narrative Procedure Note Laure Tse MD - 07/07/2023 3:45 PM CDT GI ENDOSCOPY [facility] Patient Name: Prem Raza Procedure Date: 07/07/2023 3:45 PM Date of : 1960 Admit Type: Outpatient Age: 63 Gender: Male Attending MD: Laure Tse M.D. Room: [facility] ENDOSCOPY ROOM 8 Note Status: Finalized Procedure: Colonoscopy Indications: Screening for colorectal malignant neoplasm, Thisis the patient's first colonoscopy Referring MD: Scooter Montgomery M.D. Providers: Laure Tse M.D. Medicines: Monitored Anesthesia Care Complications: No immediate complications. Estimated Blood Loss: Estimated blood loss: none. Procedure: Pre-Anesthesia Assessment: - Prior to the procedure, a History and Physicalwas performed, and patient medications, allergies and sensitivities were reviewed. The patient'stolerance of previous anesthesia was reviewed. - The risks and benefits of the procedure and the sedation options and risks were discussed with the patient. All questions were answered and informed consent was obtained. - Immediately prior to administration ofmedications, the patient was re-assessed for adequacy to receive sedatives. - Sedation was administered by an anesthesia professional. Deep sedation was attained. The benefits, risks and alternatives of theprocedure and sedation were discussed and informed consentwas obtained. All questions were answered. Please referto the signed informed consent document in the medical record. The scope was passed under direct vision.The [id number] endoscope was introduced through the anus and advanced to the cecum, identified by appendiceal orifice and ileocecal valve. The colonoscopy was performed without difficulty. The patient tolerated the procedure well. The qualityof the bowel preparation was adequate to identifypolyps. The quality of the bowel preparation was evaluated using the BBPS ([place] Bowel Preparation Scale)with scores of: Right Colon = 2 (minor amount ofresidual staining, small fragments of stool and/or opaque liquid, but mucosa seen well), Transverse Colon = 2 (minor amount of residual staining, small fragmentsof stool and/or opaque liquid, but mucosa seen well)and Left Colon = 2 (minor amount of residual staining, small fragments of stool and/or opaque liquid, but mucosa seen well). The total BBPS score equals 6.The quality of the bowel preparation was fair. Rightside was examined twice on withdrawal. Extreme diligence was made to ensure examination behind the foldusing good withdraw technique with adequate insufflationand washing of the debris. The bowel preparation usedwas GoLYTELY via split dose instruction. Findings: The perianal and digital rectal examinations were normal. A 6 mm polyp was found in the descending colon. The polyp wassessile. The polyp was removed with a cold snare. Resection and retrieval were complete. The pathology specimen was placed into Bottle A. A 12 mm polyp was found in the ascending colon. The polyp was sessile. The polyp was removed with a hot snare. Resection and retrieval were complete. To close a defect after polypectomy, two hemostatic clipswere successfully placed (MR conditional). There was no bleeding at theend of the procedure. Bottle B A 15 mm polyp was found in the transverse colon. The polyp was Heather classification IIa (superficial, elevated). The polyp was removedwith a hot snare. Resection and retrieval were complete. The pathologyspecimen was placed into Bottle C. The exam was otherwise without abnormality. Non-bleeding internal hemorrhoids were found during retroflexion. The hemorrhoids were medium-sized. Impression: - Preparation of the colon was fair. - One 6 mm polyp in the descending colon, removedwith a cold snare. Resected and retrieved. - One 12 mm polyp in the ascending colon, removedwith a hot snare. Resected and retrieved. Clips (MR conditional) were placed. - One 15 mm polyp in the transverse colon, removed with a hot snare. Resected and retrieved. - The examination was otherwise normal. - Non-bleeding internal hemorrhoids. Recommendation: - -Observe pt in recovery. - Discharge patient to home when stable. - Patient has a contact number available for emergencies. The signs and symptoms of potential delayed complications were discussed with thepatient. Return to normal activities tomorrow. Written discharge instructions were provided to thepatient. - Resume previous diet. - Continue present medications. -Avoid NSAIDs and anticoagulation for 10 days - Await pathology results. - The findings and recommendations were discussedwith the patient. - In the unusual situation that you developabdominal pain, bleeding or other significant problems inthe days following this procedure please call my office [phone]). After hours and eveningsplease call [phone] and speak to the GI fellow oncall fellow. Please tell the fellow that Dr. Tse did your procedure and that you were instructed to have the fellow call me or the physician covering for meto discuss the management of your condition. If youhave an urgent problem, please go to the nearestemergency room and have the ER doctor call my office duringthe day or the GI fellow after hours and weekends to arrange admission or transfer to our facility.Please bring this report with you if you go to theemergency room. - Repeat colonoscopy in 3 years for surveillance if path otherwise benign. Attending Participation: I personally performed the entire procedure. Electronically signed by Laure Tse MD Laure Tse M.D. 07/07/2023 5:00:25 PM . Number of Addenda: 0 Note Initiated On: 07/07/2023 3:45 PM us Laure Tse MD ENDOSCOPY PROCEDURES F inal Result * PSA screen (04/12/2023 4:00 PM EGGS INSPECTOR) PSA 0.3 0.0 - 4.0 ng/mL [facility] - 01 Comment: Jordy ECLIA methodology. According to the [place] [employer], Serum PSA should decrease and remain at undetectable levels after radical prostatectomy. The AUA defines biochemical recurrence as an initial PSA value 0.2 ng/mL or greater followed by a subsequent confirmatory PSA value 0.2 ng/mL or greater. Values obtained with different assay methods or kits cannot be used interchangeably. Results cannot be interpreted as absolute evidence of the presence or absence of malignant disease. Blood 04/12/2023 4:00 PM EGGS INSPECTOR 04/12/2023 Narrative [facility] - 04/14/2023 8:18 AM EGGS INSPECTOR Performed at: - [facility] [id number] Police Commissioner: Rudolph Darby PhD, Phone: [phone] Scooter Montgomery MD LAB BLOOD ORDERABLES Final Re sult Performing Organization Address [facility] Co de Phone Number [facility] - 01 * Hepatitis C (HCV) RNA PCR, quantitative Blood (04/12/2023 4:00 PM EGGS INSPECTOR) [facility] HCV RNA IU/mL HCV Not Detected IU/mL [facility] 02 HCV RNA log IU/mL CANCELED log10 IU/mL [facility] 02 Comment: Unable to calculate result since non-numeric result obtained for component test. Result canceled by the ancillary. Test information Comment [facility] 02 Comment:The quantitative ran ge of this assay is 15 IU/mL to 100 million IU/mL. HCV genotype CANCELED [facility] 02 Comment: Not indicated Result canceled by the ancillary. Blood 04/12/2023 4:00 PM EGGS INSPECTOR 04/12/2023 Narrative [facility] - 04/14/2023 8:18 AM EGGS INSPECTOR Performed at: [facility] [id number] Police Commissioner: Georgia England MD, Phone: [phone] Scooter Montgomery MD LAB MICROBIOLOGY - GENERAL OR DERABLES Edited Result - Final Performing Organization Address City/[facility]/ZIP Co de Phone Number [facility] 02 from Last 3 Months or Most Recently Relevant to Health Maintenance Insurance [employer] MEDICARE H[facility] MED[facility] O [employer] MEDICARE HMO Advance Directives For more information, please contact: [phone] * Full Code (Latest Code Status on File) Date Activated Date Inactivated Comments 07/07/2023 5:30 PM 07/07/2023 9:31 PM * Full Code Date Activated Date Inactivated Comments 07/07/2023 3:05 PM 07/07/2023 5:30 PM Care Teams Activity Therapy Specialist Relationship Specialty Start Date End Date Scooter Montgomery MD [address] [employer] [address] [address] PCP - General 03/06/19 Scooter Montgomery MD [address] [employer] [address] [address] 02/16/19 Scooter Montgomery MD [address] [facility] [address], [place] [address] 10/20/16
--- OUTSIDE RECORDS SUMMARY | 2024-06-12 01:15 | XMS_ITS | CONTINUITY OF CARE DOCUMENT ---
Author Name alexis espinoza Address Unknown Organization [facility] Address [address] [address] [place] [address] Phone [phone] Care Team Providers Care Financial Aid Name Role Phone Alex Finney MD Unavailable [phone] KT GEE MD Unavailable KT GEE MD Unavailable [phone] INSURANCE PROVIDERS Payer name Policy type / Coverage type [employer] party ID [employer] O O [id number]
--- OUTSIDE RECORDS SUMMARY | 2024-06-12 01:15 | XMS_ITS | Clinical Summary ---
Author Organization [facility] Address [address] [place] [id number] Care Team Providers Care Corporate Tutor Name Role Phone Scooter Montgomery MD Primary Care Provider [phone] Scooter Montgomery MD Unavailable Scooter Montgomery MD Unavailable [phone] Allergies Active Allergy Reactions Criticality Noted Date [...] 01/25/2024 Assessment & Plan (01/25/2024 2:28 PM SENIOR BRANCH MANAGER): Check nerve conduction study Claudication 01/25/2024 Assessment & Plan (01/25/2024 2:27 PM SENIOR BRANCH MANAGER): Check arterial Doppler. Maybe pseudo claudication from back issues. Weight loss 08/15/2023 Assessment & Plan (08/15/2023 2:37 PM CDT): Check CT abdomen pelvis, CT chest, and labs Encounter for screening colonoscopy 04/12/2023 Essential hypertension 04/29/2020 Overview (04/29/2020): BP at target Assessment & Plan (01/25/2024 2:28 PM SENIOR BRANCH MANAGER): BP at target. Assessment & Plan (08/15/2023 2:37 PM CDT): BP at target. Chronic obstructive pulmonary disease 04/29/2020 Overview (04/29/2020): Stable Assessment & Plan (01/25/2024 2:28 PM SENIOR BRANCH MANAGER): Stable at this time. Assessment & Plan (08/15/2023 2:37 PM CDT): Stable continues to smoke Chronic hepatitis C without hepatic coma 021 Overview (04/29/2020): Followed by GI Assessment & Plan (01/25/2024 2:28 PM SENIOR BRANCH MANAGER): Check CMP. Assessment & Plan (08/15/2023 2:37 [...] to alcohol 03/2013 Overview (05/21/2016): ALCOHOLIC CARDIOMYOPATHY Encounters Date Type Department Care Team Description 05/21/2024 2:22 PM CDT - 05/21/2024 11:59 PM CDT Hospital Encounter [facility] ([facility]) [address] [place] [id number] Discharge Disposition: Discharge to home or self care 05/21/2024 2:21 PM CDT - 05/21/2024 11:59 PM CDT Hospital Encounter [facility] ([facility]) [address] [place] [address] Discharge Disposition: Discharge to home or self care 04/20/2024 [facility] [address] [facility] [address] [place] [address] Scooter Montgomery MD symptoms from Last 3 Months Immunizations Immunization Administration Dates Next Due Hep [...] Pneumococcal Polysaccharide PPV23 12/03/2014,05/2010 ZOSTER Recombinant 04/12/2021 Surgical History Surgery Date Site/Laterality Comments OTHER SURGICAL HISTORY Back surgery, knee surgery , C-spine KNEE SURGERY Left HERNIA REPAIR BACK SURGERY NECK SURGERY FACIAL FRACTURE SURGERY Medical History Medical History Date Comments Hx Other Medical Elevated liver enzymes Hypertension COPD (chronic obstructive pulmonary disease) (HC C) Family History Medical History Relation Name Comments Other Father Drank himself t o ; Cause of : Drank himself to COPD Mother Other Mother COPD, mild CAD; Relation Name Status Comments Father (Age 57) Mother Alive Social History Tobacco Use Types Packs/Day Years [...] on file Legal Sex Male 11:57 AM SENIOR BRANCH MANAGER Gender Identity Not on file Sexual Orientation Not on file Obstetrics History Last Filed Vital Signs Vital Sign Reading Time Taken Comments Blood Pressure 154/90 01/25/2024 1:53 PM SENIOR BRANCH MANAGER Pulse 63 01/25/2024 1:53 PM SENIOR BRANCH MANAGER Temperature 36.1 C (97 F) 07/07/2023 4:50 PM CDT Respiratory Rate 17 07/07/2023 5:10 PM CDT Oxygen Saturation 90% 07/07/2023 5:10 PM CDT Inhaled Oxygen Concentration - - Weight 103.9 kg (229 lb) 01/25/2024 1:53 PM SENIOR BRANCH MANAGER Height 175.3 cm (5' 9 ) 01/25/2024 1:53 PM SENIOR BRANCH MANAGER Body Mass Index 33.82 01/25/2024 1:53 PM SENIOR BRANCH MANAGER Plan of Treatment Scheduled Procedures Name Priority Associated Diagnoses Date/Ti me COLONOSCOPY History of colon polyps Health Maintenance Due Date Last Done Comments Depression Screening 1960 DTaP/Tdap/Td Vaccine (1 - Tdap) 06/20/1971 Regular Well Visit/Exam 18-64 1978 Pneumococcal vaccine <65 (2 of 2 - PCV) 12/04/2015 12/03/2014, 11/17/2010 Zoster Vaccine (2 of 2) 06/07/2021 04/12/2021 Covid-19 Vaccine (3 - 2023-2 5 season) 2023 09/22/2020, 08/31/2020 Influenza Vaccine (Season Ended) 2024 12/06/2021, 12/03/2020, 11/22/2019, Additional history exists Prostate Cancer Screening-PSA 04/12/2025, 03/19/2022, 10/14/2020, Additional history exists Colon Cancer Screening-Colonoscopy 07/06/2033 07/07/2023 Colon Cancer Screening-CT Colonography Discontinued 07/07/2023 Colon Cancer Screening-DNA Stool Discontinued 07/07/19 Colon Cancer Screening-FIT Discontinued 07/07/2023 Colon Cancer Screening-Sigmoidoscopy Discontinued 07/07/2023 Hepatitis C Screening Completed 01/25/2024 , 08/15/2023, 04/12/2023, Additional history exists Procedures Procedure Name Priority Date/Time Associated Diagnosis Comments XR TRANSFER OF OUTSIDE FILMS Routine 05/21/2024 2:22 PM CDT NEURO MR OUTSIDE REFERENCE Routine 05/21/2024 2:21 PM CDT COLONOSCOPY 07/07/2023 3:45 PM CDT HEPATITIS C RNA, QUANTITATIVE, PCR Routine 04/12/2023 4:00 PM SENIOR BRANCH MANAGER Encounter for screening colonoscopy Tobacco dependence syndrome Essential hypertension Chronic obstructive pulmonary disease, unspecified COPD type (HCC) Chronic hepatitis C without hepatic coma (HCC) Aneurysm of ascending aorta without rupture Chronic midline low back pain without sciatica PSA SCREEN Routine 04/12/2023 4:00 PM SENIOR BRANCH MANAGER Encounter for screening colonoscopy Tobacco dependence syndrome Essential hypertension Chronic obstructive pulmonary disease, unspecified COPD type (HCC) Chronic hepatitis C without hepatic coma (HCC) Aneurysm of ascending aorta without rupture Chronic midline low back pain without sciatica from Last 3 Months or Most Recently Relevant to Health Maintenance Results * XR Outside Reference (05/21/2024 2:22 PM CDT) Impressions [facility] - 05/21/2024 2:22 PM CDT These images are for Reference purposes only and have not been reviewed by [facility]. There will be no report generated by a [facility] Radiologist. Narrative [facility] - 05/21/2024 2:22 PM CDT EXAMINATION: Images For Reference Purposes Only Scooter Montgomery MD IMG XR PROCEDURES Final Resul t Performing Organization Address [facility] de Phone Number [email or web address] * Neuro MR Outside Reference (05/21/2024 2:21 PM CDT) Impressions [facility] - 05/21/2024 2:22 PM CDT These images are for Reference purposes only and have not been reviewed by [facility]. There will be no report generated by a [facility] Radiologist. Narrative [facility] - 05/21/2024 2:22 PM CDT EXAMINATION: Images For Reference Purposes Only Scooter Montgomery MD IMG MRI PROCEDURES Final Resu lt Performing Organization Address [facility] Phone Number [email or web address] * Colonoscopy (07/07/2023 3:45 PM CDT) Anatomical Region Laterality Modality Other Narrative Procedure Note Laure Tse MD - 07/07/2023 3:45 PM CDT [facility] Patient Name: Prem Raza Procedure Date: 07/07/2023 3:45 PM Date of : 1960 Admit Type: Outpatient Age: 63 Gender: Male Attending MD: Laure Tse M.D. Room: [facility] ENDOSCOPY ROOM 8 Note Status: Finalized Procedure: [...] The scope was passed under direct vision.The [id number] endoscope was introduced through the anus and advanced to the cecum, identified by appendiceal orifice and ileocecal valve. The colonoscopy was performed without difficulty. The patient tolerated the procedure well. The qualityof the bowel preparation was adequate to identifypolyps. The quality of the bowel preparation was evaluated using the BBPS (Rigby Bowel Preparation Scale)with scores of: Right Colon [...] following this procedure please call my office [phone]). After hours and eveningsplease call [phone] and speak to the GI fellow oncall [...] 0 Note Initiated On: 07/07/2023 3:45 PM Laure Tse MD ENDOSCOPY PROCEDURES F inal Result * PSA screen (04/12/2023 4:00 PM SENIOR BRANCH MANAGER) PSA 0.3 0.0 - 4.0 ng/mL [facility] - 01 Comment: Jordy ECLIA methodology. According to the [employer], Serum PSA should decrease and [...] of malignant disease. Blood 04/12/2023 4:00 PM SENIOR BRANCH MANAGER 04/12/2023 Narrative [facility] - 04/14/2023 8:18 AM SENIOR BRANCH MANAGER Performed at: [facility] [id number] Supervisor Glycerin: Rudolph Darby PhD, Phone: [phone] Scooter Montgomery MD LAB BLOOD ORDERABLES Final Re sult [facility] - 01 * Hepatitis C (HCV) RNA PCR, quantitative Blood (04/12/2023 4:00 PM SENIOR BRANCH MANAGER) Pathologist [facility] HCV RNA IU/mL HCV Not Detected IU/mL [...] by the ancillary. Blood 04/12/2023 4:00 PM SENIOR BRANCH MANAGER 04/12/2023 Narrative [facility] - 04/14/2023 8:18 AM SENIOR BRANCH MANAGER Performed at: [facility] [id number] Supervisor Glycerin: Georgia England MD, Phone: [phone] Scooter Montgomery MD LAB MICROBIOLOGY - GENERAL OR DERABLES Edited Result - Final [facility] 02 from Last 3 Months or Most Recently Relevant to Health Maintenance Insurance [employer] MEDICARE HMO [facility] HU[employer]NA MEDICARE HMO [employer] MEDICARE HMO Advance Directives For more information, please contact: [phone] * Full Code (Latest Code Status on File) Date Activated Date Inactivated Comments 07/07/2023 5:30 PM 07/07/2023 9:31 PM * Full Code Date Activated Date Inactivated Comments 07/07/2023 3:05 PM 07/07/2023 5:30 PM Care Teams Corporate Tutor Relationship Specialty Start Date End Date Scooter Montgomery MD [address] [address] PCP - General 03/06/19 Scooter Montgomery MD [address] [address] 02/16/19 Scooter Montgomery MD [address] [address] 10/20/16
--- NOTE | 2024-06-12 01:27 | ED_ITS ---
HPI - Fall General Chief Complaint: Fall Stated Complaint: RUE DEFORMITY & PAIN S/P FALL Time Seen by Provider: 06/12/24 01:06 History of Present Illness HPI Narrative: 63-year-old male with a past medical history including hypertension and alcoholism. Patient presents to the emergency department with EMS for concerns of right upper extremity deformity and pain after a fall. Patient states that he was drinking throughout the evening and his neighbor found him outside screaming in pain after he had fallen. Patient states he was outside for over an hours screening. He states he tripped on a rock and his garden and fell forward. He has an obvious deformity to his right upper extremity. Administered 40 mg of ketamine EN route by EMS for pain control. Patient is not of his tetanus is up-to-date. He has some scattered superficial abrasions to his right upper extremity and various bruising to his bilateral upper extremities that appears old. No signs of head trauma. He is able to answer questions. Does not take blood thinners. Related Data Home Medications ?Medication ?Instructions ?Recorded ?Confirmed ?Last Taken ?Type albuterol sulfate 90 mcg/actuation 90 mcg inhalation QID 09/07/23 09/07/23 09/06/23 History aerosol inhaler fluticasone propionate 50 50 mcg intranasal PRN 09/07/23 09/07/23 09/06/23 History mcg/actuation nasal spray,suspension gabapentin 300 mg capsule 300 mg PO BID 09/07/23 09/07/23 09/06/23 History hydrochlorothiazide 12.5 mg tablet 12.5 mg PO ONCE 09/07/23 09/07/23 09/06/23 History hydrocodone 10 mg-acetaminophen 10 - 325 tablet PO PRN PAIN 09/07/23 09/07/23 09/06/23 History 325 mg tablet lisinopril 10 mg tablet 10 mg PO ONCE 09/07/23 09/07/23 09/06/23 History melatonin 10 mg tablet 10 mg PO HS PRN Insomnia 09/07/23 09/07/23 09/05/23 History metoprolol tartrate 50 mg tablet 50 mg PO BID 09/07/23 09/07/23 09/06/23 History Allergies Allergy/AdvReac Type Severity Reaction Status Date / Time iohexol (From contrast - CT, Allergy Itching Verified 09/06/23 21:17 X-RAY) Review of Systems 2 Review of Systems: As reviewed above in [facility] Social History Social History Smoking packs per day: 0.5 Smoking cigarettes per day: 10.0 Smoking status: Current every day smoker Tobacco type: cigarettes Alcohol intake: current Drinks per week: 14 Substance use: never Substance use type: does not use Do You Feel Safe in your Home?: Yes Lack of Transportation: No Lack of Food: Never True Current Housing: I Have Housing Concerned About Future Housing: No Difficulty Paying Gas/Electric Bills: No Difficulty Paying for Meds: No Currently Unemployed: No Education: Decline to Answer Difficulty w/ Childcare or Family Care: No Spiritual care concerns: No Exam 2 Narrative: GENERAL: In pain, obvious deformity to the right upper extremity. Otherwise awake and answering questions. HEAD: [Normocephalic, atraumatic.] EYES: [PERRLA and EOMI.] ENT: Nares clear, no rhinorrhea or epistaxis. Mucous membranes moist. NECK: Supple. CHEST: [Clear to auscultation. No respiratory distress.] HEART: [Regular rate and rhythm]. No murmur heard. [Normal peripheral pulses.] ABDOMEN: [Soft, nondistended], [nontender], [No rigidity or guarding] EXTREMITIES: Midshaft deformity to the right upper extremity, scattered abrasions over the right upper extremity, scattered bruising bilaterally that appears old. Heading Machine Operator strength 5/5, able to oppose each digit make a thumbs-up sign. Able to move both bilateral lower extremities and no deficit in the left upper extremity. No midline tenderness the spinal column. SKIN: Warm, dry, no rash. NEURO: [No focal deficits]. Alert and oriented [x3.] PSYCH: [Normal mood and affect.] Course Vital Signs Vital signs: Vital Signs Temperature 36.4 C L 06/12/24 01:14 Pulse Rate 65 06/12/24 01:14 Respiratory Rate 22 H 06/12/24 01:14 Pulse Oximetry 97 06/12/24 01:14 Oxygen Delivery Room Air 06/12/24 01:14 Temperature 36.4 C L 06/12/24 01:14 Pulse Rate 71 06/12/24 05:01 Respiratory Rate 12 06/12/24 05:01 Blood Pressure 107/67 06/12/24 05:31 Pulse Oximetry 100 06/12/24 05:31 Oxygen Delivery Room Air 06/12/24 01:14 Procedures Orthopedic Splinting/Casting Injury #1: Splinting/Casting Date: 06/12/24 Side: right Upper Extremity Injury Location: upper arm Upper Extremity Immobilizer: sling/shoulder immobilizer and sugar tong splint Splint: customized in ED Pre-Procedure Neuro Vascular Exam: normal Post-Procedure Neuro Vascular Exam: normal MDM - Fall MDM Narrative Medical decision making narrative: 63-year-old male with history of hypertension and alcohol use presenting to the emergency department after a fall. Patient states that he was in his garden and tripped over a rock and landed onto his right shoulder. Was on the ground for over an hour screaming in pain until his neighbor called EMS. Patient has an obvious deformity to his midshaft right humerus. Scattered abrasions over bilateral extremities and dirt in the wounds but no laceration or active bleeding. Distal pulses are intact, distal neuro vasculature appears intact. No other obvious signs of trauma or injury besides the right upper extremity. Sling was applied by EMS. He was provided ketamine EN route for pain control. He was additionally provide fentanyl here in the emergency department while x- rays were obtained which revealed a midshaft humeral fracture with some displacement. CT of the head and cervical spine was ordered as well as a humerus and forearm x-ray for further delineation of any other injuries. Alcohol level and coags as well as basic studies obtained. Patient was placed into a coaptation splint and Orthopedics will be consult for recommendations. CT of the chest abdomen pelvis also ordered given patient's traumatic history and distracting injury with inability to give me collateral information. Patient was provided fluid bolus, he is severely intoxicated with elevated alcohol level. Not able to provide meaningful history and fighting me when I am trying to help him with his fracture. He was needing some sedation so Haldol was utilized with pain control as well with good effect. He has a very displaced spiral fracture of his right upper extremity. Spoke to the Orthopedic Dr. Galeas who recommended transfer to a tertiary care center further trauma evaluation based on injury pattern and extent of injury. Patient's workup with laboratory studies showed no leukocytosis or anemia worse than baseline. No coagulopathy. Electrolytes unremarkable. Normal renal function. Unremarkable LFTs. Alcohol level elevated 246. CT scan shows no findings of any acute intra-abdominal thoracic or pelvic pathology. Oblique fracture of the humeral shaft noted, no other acute traumatic injuries seen. Cirrhotic liver morphology chronic L1 compression fracture. CT of the head without any acute findings. C-spine without any acute findings. [facility] was spoken to and I was connected with the emergency department as well as the Orthopedic Trauma physician. ER doctor Dr. Haley is the accepting physician. I spoke to him regarding patient's presentation and the for transfer. ALS ambulance was arranged and patient was transferred to [facility] ED. Medical Records Attestation: I reviewed the patient's medical records. Lab Data Attestation: I reviewed the patient's lab results. 06/12/24 01:43 06/12/24 01:43 Labs: Lab Results 06/12/24 Range/Units 01:43 WBC 8.1 (4.5-10.0) K/mm3 RBC 3.12 L (4.6-6.20) M/mm3 Hgb 12.3 L (14.0-18.0) g/dL Hct 37.0 L (42.0-52.0) % MCV 118.6 H (80-100) fl MCH 39.4 H (26-34) pg MCHC 33.2 (32-36) g/dl RDW 18.8 H (11.5-14.5) % Plt Count 107 L (150-375) k/mm3 MPV 9.1 (7.4-10.4) fl Immature Gran % (Auto) 1.2 H (0-0.5) % Neut % (Auto) 60.3 (45.5-73.1) % Lymph % (Auto) 29.8 (18.3-44.2) % Bosque % (Auto) 6.2 (2.6-8.5) % Eos % (Auto) 1.9 (0-4.4) % Baso % (Auto) 0.6 (0.2-1.2) % Lymph # (Auto) 2.41 (0.9-3.2) K/mm3 Bosque # (Auto) 0.5 (0.1-0.6) K/mm3 Eos # (Auto) 0.2 (0-0.3) K/mm3 Baso # (Auto) 0.1 (0.0-0.1) K/mm3 Abs Immat Gran (auto) 0.10 H (0.00-0.031) K/mm3 Absolute Neuts (auto) 4.9 (1.3-6.7) K/mm3 Absolute Nucleated RBC 0.050 H (0.0-0.012) K/mm3 Band Neutrophils % Not Reportable Nucleated RBC % 0.6 H (0.0-0.2) % Platelet Estimate Decreased (Adequate) Macrocytosis 1+ (NORMAL) Schistocytes None seen PT 13.6 (11.1-14.7) Seconds INR 1.0 APTT 24.1 (22.3-36.8) Seconds Sodium 137 (137-145) mmol/L Potassium 4.0 (3.4-5.0) mmol/L Chloride 100 (98-107) mmol/L Carbon Dioxide 26 (22-30) mmol/L Anion Gap 11 (4-12) mmol/L BUN 8 L (9-20) mg/dL Creatinine 0.79 (0.7-1.3) mg/dL Estim Creat Clear Calc 98 ml/min Estimated GFR > 60 (59 - ) Glucose 107 (65-110) mg/dL Calcium 8.4 (8.4-10.2) mg/dL Total Bilirubin 0.7 (0.2-1.3) mg/dL AST 61 H (17-59) U/L ALT 23 (6-50) U/L Alkaline Phosphatase 99 (38-126) U/L Total Protein 6.0 L (6.3-8.2) g/dL Albumin 3.4 L (3.5-5.1) g/dL Ethyl Alcohol 246 (<10) mg/dL Imaging Data Attestation: I personally reviewed and interpreted this imaging study as follows: My impression: Impressions Forearm X-Ray 06/12/24 06:04 Impression: Unremarkable exam. Humerus X-Ray 06/12/24 06:05 Impression: Acute, displaced oblique/spiral fracture of the humeral shaft. Cervical Spine CT 06/12/24 06:10 Impression: No acute fracture or subluxation of the cervical spine. 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 Degenerative changes, as detailed above. Head CT 06/12/24 06:10 Impression: No significant abnormality seen. Chest/Abdomen/Pelvis CT 06/12/24 06:14 Impression: Acute, oblique, displaced fracture of the right humeral shaft noted. No other acute, posttraumatic abnormality seen. Possible cirrhotic morphology of the liver. Chronic L1 compression deformity. Humerus X-Ray 06/12/24 06:20 Impression: Acute oblique fracture mid humeral shaft with apparent increased posterolateral apex angulation as compared to prior exam with persistent probable displacement. Discharge Plan Discharge Clinical Impression: Displaced spiral fracture of shaft of humerus, CHI (closed head injury) Alcohol intoxication Qualifiers: Complication of substance-induced condition: uncomplicated Qualified Code(s): F 10.920 - Alcohol use, unspecified with intoxication, uncomplicated Patient Disposition: Acute Care Hospital Condition: Stable Patient Language: Arabic Prescriptions: No Action hydrocodone-acetaminophen 10-325 mg tablet 10 - 325 tablet PO PRN lisinopril 10 mg tablet 10 mg PO ONCE metoprolol tartrate 50 mg tablet 50 mg PO BID gabapentin 300 mg capsule 300 mg PO BID albuterol sulfate 90 mcg/actuation HFA aerosol inhaler 90 mcg INHALATION QID fluticasone propionate 50 mcg/actuation spray,suspension 50 mcg INTRANASAL PRN hydrochlorothiazide 12.5 mg tablet 12.5 mg PO ONCE melatonin 10 mg Tablet 10 mg PO HS PRN (Reason: Insomnia) Follow-up/Referrals: Valentina,Scooter Connor MD [Primary Care Provider] - Time of Disposition: 06:41
[2024-06-12] MEDS: fentaNYL CITRATE INJ (*CRX) 100 MCG/2 ML VIAL (01:41)
[2024-06-12 01:53] LABS: Basophils Absolute Auto 0.1 K/mm3 (0.0-0.1); Basophils Percent Auto 0.6 % (0.2-1.2); Eosinophils Absolute Auto 0.2 K/mm3 (0-0.3); Eosinophils Percent Auto 1.9 % (0-4.4); Hemoglobin 12.3 g/dL (14.0-18.0); Immature Granulocyte Percent A 1.2 % (0-0.5); Lymphocytes Absolute Auto 2.41 K/mm3 (0.9-3.2); Lymphocytes Percent Auto 29.8 % (18.3-44.2); Mean Corpuscular HGB Conc 33.2 g/dl (32-36); Mean Corpuscular Hemoglobin 39.4 pg (26-34); Mean Corpuscular Volume 118.6 fl (80-100); Mean Platelet Volume 9.1 fl (7.4-10.4); Monocytes Absolute Auto 0.5 K/mm3 (0.1-0.6); Monocytes Percent Auto 6.2 % (2.6-8.5); Neutrophils Absolute Auto 4.9 K/mm3 (1.3-6.7); Neutrophils Percent Auto 60.3 % (45.5-73.1); Nucleated Red Blood Cells Perc 0.6 % (0.0-0.2); Platelet Count Result 107 k/mm3 (150-375); Red Blood Count 3.12 M/mm3 (4.6-6.20); Red Cell Distribution Width 18.8 % (11.5-14.5); White Blood Count 8.1 K/mm3 (4.5-10.0)
[2024-06-12 02:02] LABS: Alanine Aminotransferase 23 U/L (6-50); Albumin Level 3.4 g/dL (3.5-5.1); Alkaline Phosphatase 99 U/L (38-126); Anion Gap 11 mmol/L (4-12); Aspartate Amino Transferase 61 U/L (17-59); Bilirubin,Total 0.7 mg/dL (0.2-1.3); Blood Urea Nitrogen 8 mg/dL (9-20); Calcium 8.4 mg/dL (8.4-10.2); Carbon Dioxide 26 mmol/L (22-30); Chloride 100 mmol/L (98-107); Estimated CRCL calculation 98 ml/min; Estimated Glomerular Filt Rate > 60; Ethanol 246 mg/dL (<10); Glucose 107 mg/dL (65-110); Sodium 137 mmol/L (137-145)
[2024-06-12 02:05] LABS: Prothrombin Time 13.6 Seconds (11.1-14.7)
[2024-06-12 02:06] LABS: Partial Thromboplastin Time 24.1 Seconds (22.3-36.8)
[2024-06-12] MEDS: HYDROmorphone HCL INJ (*CRX) 2 MG/ML VIAL 1 MG IV PUSH (02:08)
[2024-06-12 02:17] LABS: Macrocytosis 1+ (NORMAL); Platelet Estimate Decreased (Adequate)
[2024-06-12 02:18] LABS: Schistocytes None Seen
[2024-06-12] MEDS: HALOPERIDOL LACTATE 5 MG/ML VIAL IV PUSH (02:29)
--- NOTE | 2024-06-12 03:00 | PC.NURSE ---
EDP at bedside. VORB for NS bolus.
[2024-06-12] MEDS: SODIUM CHLORIDE 0.9% IV 1,000 ML 1000 ML (03:05)
[2024-06-12] MEDS: LACTATED RINGERS 1,000 ML 999 ML IV CONT (03:13)
--- NOTE | 2024-06-12 04:38 | PC.NURSE ---
pt arm was bent. Therefore fluids were not flowing. Educated pt on importance of keeping arm straight.
--- NOTE | 2024-06-12 05:31 | PC.NURSE ---
RN called daughter Brina per pt ask. Updated on pt status. Would like continuos updates on changes.
== END 2024-06-12 07:00 | disposition short-term general hospital (02) ==
PROVIDERS: Emergency Provider Student in an Organized Health Care Education/Training Program; PCP Internal Medicine
DX: S42.331A Displaced oblique fracture of shaft of humerus, right arm, initial encounter for closed fracture (principal); S09.90XA Unspecified injury of head, initial encounter; F17.210 Nicotine dependence, cigarettes, uncomplicated; W01.0XXA Fall on same level from slipping, tripping and stumbling without subsequent striking against object, initial encounter
CPT/HCPCS: 24500; 36415; 70450; 71250; 72125; 73060; 73090; 74176; 80053; 82077; 85025; 85610; 85730; 96374; 96375; 99285; J1171; J1630; J3010; J7030; J7120